=== PATIENT | female | born 1955 | race Caucasian/White ===

== ENCOUNTER → 2016-05-24 | Outpatient (CLI) | payer OTHER ==
[~2016-05-24] MED LIST: CYCL5TAB11 PO
--- NOTE | 2016-05-24 13:03 | Diagnostic Imaging Report ---
PROCEDURE: US Carotid Duplex Bilateral. TECHNIQUE: Multiple real-time grayscale images were obtained over the carotid arteries in various projections bilaterally. Additional duplex Doppler and color Doppler images were also obtained. INDICATION: Hyperlipidemia. FINDINGS: There is no significant plaque seen in the common or internal carotid arteries on grayscale images. Mild plaque in the proximal left external carotid artery is seen. Color Doppler demonstrates patency of the common, internal and external carotid arteries bilaterally. There is antegrade flow in the vertebral arteries on both sides. Peak systolic velocities in the right ICA are 70, 58 and 72 cm/sec from proximal to distal and on the left 35, 62 and 62 cm/sec. ICA versus CCA ratios are up to 0.7 in the right side and up to 0.6 on the left. IMPRESSION: Estimated underlying stenosis is in the range of 25-40% bilaterally. Dictated by: Dictated on workstation # [id number]
== END ==
LOC: RAD 09:23
PROVIDERS: ATTEND Nurse Practitioner Family
DX: R07.9 Chest pain, unspecified (principal); R06.00 Dyspnea, unspecified; E78.5 Hyperlipidemia, unspecified; E03.9 Hypothyroidism, unspecified
CPT/HCPCS: 93880

== ENCOUNTER → 2019-01-15 | Outpatient (CLI) | payer OTHER ==
--- NOTE | 2019-01-15 13:35 | Diagnostic Imaging Report ---
Indication: Left breast pain. The patient also reports a palpable lump felt by the practitioner in the inferior left breast. The patient denies having a palpable abnormality. Correlation is made with prior studies from 01/18/2016 and 01/21/2014. 2-D and 3-D bilateral diagnostic mammography was performed with CAD. Scattered fibroglandular densities are identified bilaterally. Intraparenchymal lymph nodes in the upper-outer aspects of both breasts appear stable. No new mass or malignant appearing microcalcifications are seen. Axillae are unremarkable. Impression: BI-RADS Category 0. No mammographic features suspicious for malignancy are identified. Even so, directed sonographic interrogation of the areas of pain in the left breast as well as the inferior left breast at the area of palpable abnormality is recommended and will be performed today. ACR BI-RADS Category 0: Incomplete. (Needs additional imaging evaluation). Result letter will be mailed to the patient. Note: At least 10% of breast cancer is not imaged by mammography. Dictated by: Dictated on workstation # [id number]
--- NOTE | 2019-01-15 17:52 | Diagnostic Imaging Report ---
INDICATION: Pain in the left breast as well as questionable lump in the inferior left breast. COMPARISON: Correlation is made with diagnostic mammogram earlier the same day. FINDINGS: Sonographic interrogation of the area of lump in the 6 o'clock location of the left breast was performed. In addition, the area of pain along the lateral aspect of the left breast and axilla was evaluated. No sonographic abnormality is seen. No solid or cystic mass is detected. IMPRESSION: No sonographic abnormality is detected. ACR BI-RADS Category 1: Negative. Dictated by: Dictated on workstation # [id number]
== END ==
LOC: RAD 13:01
PROVIDERS: ATTEND Registered Nurse
DX: Z12.39 Encounter for other screening for malignant neoplasm of breast (principal); N64.4 Mastodynia; N63.0 Unspecified lump in unspecified breast
CPT/HCPCS: 76642; 77066

== ENCOUNTER → 2022-03-29 | Outpatient (CLI) | payer MEDICARE ==
--- NOTE | 2022-03-29 17:39 | Diagnostic Imaging Report ---
Indication: Left breast pain and left breast density. Correlation is made with diagnostic mammogram earlier the same day. Sonographic interrogation of the area of pain in the outer left breast was performed. No sonographic abnormality is seen. No solid or cystic mass is identified. Lower inner left breast was also evaluated. No solid or cystic mass is identified. IMPRESSION: No sonographic abnormality is seen. Even so, follow-up left mammogram in 6 months is recommended to show continued stability. BI-RADS Category 3 ACR BI-RADS Category 3: Probably benign findings. Result letter will be mailed to the patient. Note: At least 10% of breast cancer is not imaged by mammography. Dictated by: Dictated on workstation # [id number]
--- NOTE | 2022-03-29 18:37 | Diagnostic Imaging Report ---
INDICATION: Left breast pain. COMPARISON: Correlation is made with prior mammograms from 01/15/2019 and 01/18/2016. EXAMINATION: 2D and 3D bilateral diagnostic mammography was performed with CAD. The current study was also evaluated with a Computer Aided Detection (CAD) system. FINDINGS: Scattered fibroglandular densities are identified, bilaterally. There is a density in the inferior and slightly inner left breast which appears slightly more prominent than prior exam. No abnormality in the outer left breast at the area of pain is detected. There is a benign nodule in the outer left breast which is stable. Right breast shows benign nodules in the outer portions as well and likely intraparenchymal lymph nodes. No spiculated mass or malignant-appearing microcalcifications are seen. Axillae are unremarkable. IMPRESSION: Indeterminate density in the lower slightly inner left breast, 7 cm from the nipple. Further evaluation of this area with ultrasound is recommended. In addition, ultrasound evaluation of the upper outer left breast at the area of pain is recommended and will be performed today. ACR BI-RADS Category 0: Incomplete. (Needs additional imaging evaluation). Result letter will be mailed to the patient. Note: At least 10% of breast cancer is not imaged by mammography. Dictated by: Dictated on workstation # [id number]
== END ==
LOC: RAD 12:14
PROVIDERS: ATTEND Nurse Practitioner Family
DX: N63.24 Unspecified lump in the left breast, lower inner quadrant (principal); N64.4 Mastodynia
CPT/HCPCS: 76642; 77066; G0279; 77062